=== PATIENT | female | born 1955 | race Caucasian/White ===

== ENCOUNTER 2022-09-12 08:05 | Outpatient (CLI) | payer OTHER, SELFPAY ==
--- NOTE | 2022-09-12 08:17 | MM_ITS ---
WS: [id number] VIEWS: MLO and CC views both breasts. 3D digital tomosynthesis is also included in this exam. Comparison made with prior exam of 09/12/2008, 06/20/2011, 07/18/2017, 01/28/2013.. Findings: There was no sign of mass, architectural distortion or suspicious calcification in either breast. Sc attered fibroglandular densities MM/[place] [id number] Impression: BI-RADS: 2-Benign FOLLOW-UP: 1 Year Follow-up This mammogram was also analyzed by the Computer Aided Detection System [employer]2 [employer].
== END 2022-09-12 08:06 | disposition home or self-care (01) ==
PROVIDERS: Visit Provider Physician Assistant
DX: Z12.31 Encounter for screening mammogram for malignant neoplasm of breast (principal)
CPT/HCPCS: 77063; 77067

== ENCOUNTER 2023-05-29 20:23 | Emergency (ER) | payer OTHER, SELFPAY ==
[2023-05-29 20:25] VITALS: BP 115/65; PULSE 72; RESP 18; TEMP 36.6; O2SAT 92; BMI 25.4
--- NOTE | 2023-05-29 20:28 | XRR_ITS ---
PROCEDURE INFORMATION: Exam: XR Lumbosacral Spine Exam date and time: 05/29/2023 8:57 PM Age: 67 years old Clinical indication: Injury or trauma; Fall; Blunt trauma (contusions or hematomas); Additional info: Fall trauma TECHNIQUE: Imaging protocol: Radiologic exam of the lumbosacral spine. Views: 2 or 3 views. COMPARISON: No relevant prior studies available. FINDINGS: Bones/joints: L1 and L3 vertebral body compression fractures without retropulsion of bony fragments, age indeterminate. Multilevel moderate to severe disc space narrowing throughout the spine. Grade 1 anterolisthesis of L4 relative to L5 of 6.5 mm. Minimal lumbar spine dextrocurvature. Soft tissues: Unremarkable. XR/XR lumbar spine 2-3V* [id number] IMPRESSION: 1. L1 and L3 vertebral body compression fractures without retropulsion of bony fragments, age indeterminate. 2. Multilevel moderate to severe disc space narrowing throughout the spine. 3. Grade 1 anterolisthesis of L4 relative to L5 of 6.5 mm. 4. Minimal lumbar spine dextrocurvature.
--- NOTE | 2023-05-29 20:28 | XRR_ITS ---
PROCEDURE INFORMATION: Exam: XR Left Ankle Exam date and time: 05/29/2023 8:51 PM Age: 67 years old Clinical indication: Injury or trauma; Fall; Blunt trauma; Ankle; Left; Additional info: Fall trauma TECHNIQUE: Imaging protocol: Radiologic exam of the left ankle. Views: 3 or more views. COMPARISON: No relevant prior studies available. FINDINGS: Bones/joints: Mid calcaneal oblique fracture suspected on the lateral view extending to the subtalar joint articular surface, further evaluation with CT scan advised. Calcified heel spur. Soft tissues: Normal. XR/XR ankle LT min 3V* [id number] IMPRESSION: 1. Mid calcaneal oblique fracture suspected on the lateral view extending to the subtalar joint articular surface, further evaluation with CT scan advised. 2. Calcified heel spur.
--- NOTE | 2023-05-29 20:28 | XRR_ITS ---
PROCEDURE INFORMATION: Exam: XR Left Knee Exam date and time: 05/29/2023 8:55 PM Age: 67 years old Clinical indication: Injury or trauma; Fall; Blunt trauma; Knee; Left; Additional info: Fall trauma TECHNIQUE: Imaging protocol: Radiologic exam of the left knee. Views: 3 views. COMPARISON: CR (LOW EXM, ) 05/29/2023 8:51 PM FINDINGS: Bones/joints: Tibial plateau fracture involving largely the lateral tibial plateau with possible metaphyseal distension, further evaluation with CT scan advised. Mild to moderate knee joint effusion. Soft tissues: Normal. XR/XR knee LT 3V* [id number] IMPRESSION: 1. Tibial plateau fracture involving largely the lateral tibial plateau with possible metaphyseal distension, further evaluation with CT scan advised. 2. Mild to moderate knee joint effusion.
--- NOTE | 2023-05-29 20:28 | W.ED.FALL ---
HPI - Fall General: Chief Complaint: Fall Stated Complaint: FALL Time Seen by Provider: 05/29/23 20:27 History of Present Illness: 67-year-old female presents emergency department via EMS personnel. She states she was walking and had a misstep and fell down 3 steps [place] her property and is now complaining of 7 out of 10 left ankle pain and low back pain. She states she was unable to stand after the fall. She also complains of left knee pain. She denies loss of consciousness. She states that she remembers the fall and did not get knocked out. She states her pain is a throbbing aching type pain to her ankle and left knee. And a intermittent sharp pain to her low back. She denies urinary incontinence or retention. She denies bowel incontinence or retention. She denies saddle anesthesia. She states she does have feeling to all extremities and is able to move all extremities. She states she has a longstanding history of chronic back pain. Review of Systems General: Reports: 10 or more systems reviewed and unremarkable except in HPI and below Musc: Reports: back pain, extremity pain, extremity swelling, joint pain and joint swelling Physical Exam Narrative: EXAM NARRATIVE: Constitutional: the patient appears well nourished and with normal development. Vital signs reviewed as documented. HENMT: Normocephalic, atraumatic. Extermal ears with normal appearance without drainage. Nose without drainage, normal appearance. Mucus membranes moist. Neck is supple, No jugular venous distension, trachea is midline, no appreciable carotid bruits. No lymphadenopathy. No meningeal signs. Flexion, extension and lateral rotation is without pain. Eyes: Pupils are equal, round, reactive to light and accommodation. No scleral icterus. Extra-ocular movement are intact. Thorax is symmetrical and with equal rise and fall with respirations. Resp: Lungs are clear to auscultation. No wheezes, rales, crackles or ronchi at present. Cardio: Regular rate and rhythm. Positive S1, S2. No appreciable murmurs, rubs or gallops. GI: Abdominal exam reveals normal bowel sounds to all quadrants. No organomegaly. No obvious palpable masses noted. No hepatomegally appreciated. Soft, nontender to palpation. Extremity: Small amount of edema to the left lateral malleolus area. And both femoral and pedal pulses are 2+ and equal bilaterally. Moves all extremities well, sensation in all extremities. Left knee is tender to palpation to the lateral aspect. Neuro: Alert and oriented x4, person, place, time and situation. Cranial nerves II through XII are grossly intact, there is no focal neurological deficits that I can appreciate at present. Motor strength in the upper and lower extremities are equal and bilateral 5/5. Psych: Cooperative, calm, normal thought process, appropriate judgment. Skin: No lesions, rashes. No gross abnormalities noted. Back: Symmetrical, no obvious deformity, No CVA tenderness. Slightly tender to palpation to the bilateral/paravertebral L3-L4-L5 area Course ED course: I reviewed the radiographic examination and determined the need for fracture stabilization via splint. A left posterior long leg splint was utilized. The splint was ordered and placed by the nursing staff, under the direct supervision of myself (ER Physician. The patient's neurovascular status was evaluated and was intact before and after the application of the splint. Capillary refill was less than 3 seconds before and after the application. The patient was splinted and the most appropriate anatomical and functional position at that time. Anticipatory guidance, return precautions and red flag precautions were provided to the patient and support person. The patient/support person was advised to contact the patient's primary care provider or Orthopedic provider to make a follow-up appointment for additional evaluation and treatment within the next 3-5 days. Vital Signs: Vital signs: Vital Signs Temperature 97.9 F 05/29/23 20:25 Pulse Rate 72 05/29/23 20:25 Respiratory Rate 18 05/29/23 20:25 Blood Pressure 125/69 05/29/23 22:35 Pulse Oximetry 92 05/29/23 22:35 Oxygen Delivery Me thod Room Air 05/29/23 22:35 MDM - Fall Medical Decision Making Physical exam completed and documented, I will obtain radiographic examination and provide pain medication as needed. Medical Records I reviewed the patient's medical records. Lab Data Radiology Impressions Ankle X-Ray 05/29/23 20:28 IMPRESSION: 1. Mid calcaneal oblique fracture suspected on the lateral view extending to the subtalar joint articular surface, further evaluation with CT scan advised. 2. Calcified heel spur. Knee X-Ray 05/29/23 20:28 IMPRESSION: 1. Tibial plateau fracture involving largely the lateral tibial plateau with possible metaphyseal distension, further evaluation with CT scan advised. 2. Mild to moderate knee joint effusion. Lumbar Spine X-Ray 05/29/23 20:28 IMPRESSION: 1. L1 and L3 vertebral body compression fractures without retropulsion of bony fragments, age indeterminate. 2. Multilevel moderate to severe disc space narrowing throughout the spine. 3. Grade 1 anterolisthesis of L4 relative to L5 of 6.5 mm. 4. Minimal lumbar spine dextrocurvature. All radiology interpretation(s) finalized by discharge Discharge Plan Discharge Patient Disposition: Home Clinical Impression: Fracture of left tibial plateau, Fracture of calcaneus, left, closed, Closed compression fracture of lumbar vertebra, Fall (on) (from) other stairs and steps, initial encounter Condition: Stable Prescriptions: New hydrocodone-acetaminophen 5-325 mg tablet 1 tab PO Q6H PRN (Reason: pain) Qty: 20 0RF orphenadrine citrate 100 mg tablet extended release 100 mg PO Q12H Qty: 30 0RF Discharge Orders: Discharge ED (Routine); Ordered 05/29/23 Ordered By: Shubham Soni Referrals: Jocelyn Funez MD [Physician] - Discharge Diet: Advance as tolerated Discharge Activity: Resume usual activity Patient Instructions: Opioid Safety, Pain Management Activity Restrictions/Additional Instructions: Activity Restrictions/Additional Instructions: Thank you for choosing [facility] for your healthcare needs today. Please realize that you were seen in the Emergency Department and that we are providing you with an emergency medical screening exam and this may not be a complete and all inclusive of all the testing and or medical work-up that you may need to determine your ailment or severity of your illness. It is very important that you follow-up as instructed with your Primary care provider or Specialist for additional evaluation and to discuss your medical treatment plan. You may return to the Emergency Department should you have concerns or if your condition changes or worsens in any way. Coding Level of Care Code ED Photographer [employer] for Luis F Beltran
[2023-05-29 22:35] VITALS: BP 125/69; O2SAT 92
[2023-05-29 22:54] VITALS: RESP 15; O2SAT 93
[2023-05-29] MEDS: orphenadrine 30 mg/mL Inj 2 mL 60 MG IVP (22:54)
[2023-05-29] MEDS: ondansetron 2 mg/ML SDV 2 mL 4 MG IVP (22:54)
[2023-05-29] MEDS: morphine 4 mg/mL SDV 1 mL IVP (22:54)
[2023-05-29 22:56] VITALS: BP 117/79; PULSE 91; RESP 15; O2SAT 93
--- NOTE | 2023-05-29 22:57 | PC.NURSE ---
pt L pedal pulse 3+ before splint, skin cool to touch before splint and post splint. cap refill <2 seconds post splint, pt confirms feeling to all toes. no numbness/tingling present post splint.
[2023-05-29 23:30] VITALS: BP 132/85; PULSE 67; RESP 18; O2SAT 91
== END 2023-05-29 23:31 | disposition home or self-care (01) ==
PROVIDERS: Emergency Provider Internal Medicine
DX: S82.142A Displaced bicondylar fracture of left tibia, initial encounter for closed fracture (principal); S92.002A Unspecified fracture of left calcaneus, initial encounter for closed fracture; S32.030A Wedge compression fracture of third lumbar vertebra, initial encounter for closed fracture; S32.010A Wedge compression fracture of first lumbar vertebra, initial encounter for closed fracture; W10.8XXA Fall (on) (from) other stairs and steps, initial encounter
CPT/HCPCS: 29505; 72100; 73562; 73610; 96374; 96375; 99284; E0114; J2270; J2360; J2405

== ENCOUNTER 2023-10-09 06:00 | Outpatient (RCR) | payer MEDICARE, OTHER, SELFPAY | END 2023-10-17 23:59 | disposition home or self-care (01) | LOC: SPT 06:00 | PROVIDERS: Visit Provider Physician Assistant Medical | DX: S92.015D Nondisplaced fracture of body of left calcaneus, subsequent encounter for fracture with routine healing (principal); S82.142D Displaced bicondylar fracture of left tibia, subsequent encounter for closed fracture with routine healing; S32.592D Other specified fracture of left pubis, subsequent encounter for fracture with routine healing; X58.XXXD Exposure to other specified factors, subsequent encounter | CPT/HCPCS: 97110; 97161 ==

== ENCOUNTER 2023-10-18 06:00 | Outpatient (RCR) | payer MEDICARE, SELFPAY | END 2023-11-17 23:59 | disposition home or self-care (01) | LOC: SPT 06:00 | PROVIDERS: Visit Provider Physician Assistant Medical | DX: S92.015D Nondisplaced fracture of body of left calcaneus, subsequent encounter for fracture with routine healing (principal); S82.142D Displaced bicondylar fracture of left tibia, subsequent encounter for closed fracture with routine healing; S32.592D Other specified fracture of left pubis, subsequent encounter for fracture with routine healing; X58.XXXD Exposure to other specified factors, subsequent encounter | CPT/HCPCS: 97110 ==

== ENCOUNTER 2025-03-07 13:26 | Outpatient (CLI) | payer MEDICARE, SELFPAY ==
--- NOTE | 2025-03-07 13:40 | MM_ITS ---
WS: [id number] BILATERAL 3D TOMOSYNTHESIS DIGITAL SCREENING MAMMOGRAPHY WITH CAD CLINICAL INFORMATION: ANNUAL SCREENING HISTORY: Screening mammogram. No current complaints. COMPARISON: 2022 TECHNIQUE: Bilateral CC and MLO views. FINDINGS: Scattered fibroglandular densities bilaterally. Increasing dense nodular breast tissue upper outer RIGHT breast near the 12 o'clock position best seen on the MLO view. Recommend RIGHT breast diagnostic mammography and ultrasound if persistent. LEFT breast is unremarkable and unchanged. MM/MM [facility] tomosynthesis [id number] IMPRESSION: DENSITY: There are scattered areas of fibroglandular density. BI-RADS: 0 - Incomplete: Need additional imaging evaluation. FOLLOW UP: Need Additional Imaging Recommend RIGHT breast diagnostic mammography and ultrasound if persistent
== END 2025-03-07 13:27 | disposition home or self-care (01) ==
PROVIDERS: PCP Physician Assistant; Visit Provider Physician Assistant
DX: Z12.31 Encounter for screening mammogram for malignant neoplasm of breast (principal); R92.323 Mammographic fibroglandular density, bilateral breasts; N63.15 Unspecified lump in the right breast, overlapping quadrants
CPT/HCPCS: 77063; 77067

== ENCOUNTER 2025-03-24 13:59 | Outpatient (CLI) | payer MEDICARE, SELFPAY ==
--- NOTE | 2025-03-24 14:12 | US_ITS ---
WS: [id number] RIGHT 3D TOMOSYNTHESIS DIGITAL MAMMOGRAPHY WITH CAD CLINICAL INFORMATION: ABNORMAL MAMMO HISTORY: Additional views COMPARISON: 03/07/2025 TECHNIQUE: 3 views of the right breast were obtained. FINDINGS: Scattered fibroglandular densities of the right breast. Dense nodular tissue near the 12 o'clock position partially compresses out. Ultrasound described below. ULTRASOUND BREAST RIGHT TECHNIQUE: Ultrasound right breast focused area of concern. CLINICAL INFORMATION: ABNORMAL MAMMO FINDINGS: Ultrasound RIGHT breast at the 12 o'clock to 1:00 position. Dense underlying parenchymal tissue. No cystic or solid lesions. No suspicious findings. Recommend return to annual screening mammography. US/US breast RT limited* [id number] IMPRESSION: DENSITY: There are scattered areas of fibroglandular density. BI-RADS: 2 - Benign. FOLLOW UP: 1 Year Follow-up Recommend return to annual screening mammography.
--- NOTE | 2025-03-24 14:44 | MM_ITS ---
WS: [id number] RIGHT 3D TOMOSYNTHESIS DIGITAL MAMMOGRAPHY WITH CAD CLINICAL INFORMATION: ABNORMAL MAMMO HISTORY: Additional views COMPARISON: 03/07/2025 TECHNIQUE: 3 views of the right breast were obtained. FINDINGS: Scattered fibroglandular densities of the right breast. Dense nodular tissue near the 12 o'clock position partially compresses out. Ultrasound described below. ULTRASOUND BREAST RIGHT TECHNIQUE: Ultrasound right breast focused area of concern. CLINICAL INFORMATION: ABNORMAL MAMMO FINDINGS: Ultrasound RIGHT breast at the 12 o'clock to 1:00 position. Dense underlying parenchymal tissue. No cystic or solid lesions. No suspicious findings. Recommend return to annual screening mammography. MM/MM diag RT tomosynthesis [id number] IMPRESSION: DENSITY: There are scattered areas of fibroglandular density. BI-RADS: 2 - Benign. FOLLOW UP: 1 Year Follow-up Recommend return to annual screening mammography.
== END 2025-03-24 14:00 | disposition home or self-care (01) ==
LOC: RAD 14:02
PROVIDERS: PCP Physician Assistant; Visit Provider Physician Assistant
DX: R92.8 Other abnormal and inconclusive findings on diagnostic imaging of breast (principal); N63.15 Unspecified lump in the right breast, overlapping quadrants; R92.332 Mammographic heterogeneous density, left breast
CPT/HCPCS: 76642; 77061; G0279